=== PATIENT | male | born 1990 | race Hispanic/Latino ===

== ENCOUNTER → 2020-01-19 10:44 | Outpatient (CLI) | payer OTHER, SELFPAY ==
--- NOTE | 2020-01-19 | DI.MRI.S_ITS ---
PROCEDURE: MR KNEE RT WO CON INDICATIONS: Unspecified internal derangement of right knee TECHNIQUE: Noncontrast sagittal PD fast spin echo and T2 fast spin echo with fat saturation, sagittal 3-D FLASH with fat saturation; coronal T1 spin echo and PD fast spin echo with fat saturation, and axial PD fast spin echo with fat saturation through the knee. COMPARISON: None. FINDINGS: Image quality: Excellent. Menisci: Horizontal oblique tear involving body and posterior horn of medial meniscus is seen extending to inferior articulating surface. There is no focal lateral meniscal tear. The meniscal root ligaments appear intact. Cruciate ligaments: The anterior and posterior cruciate ligaments appear intact. Medial structures: There is low-grade MCL sprain.. The posterior oblique ligament, semimembranosus tendon insertions, oblique popliteal ligament, and meniscocapsular junction appear intact. Visualized portions of the pes anserinus tendons appear normal. No abnormal bursal fluid. Lateral structures: The lateral collateral ligament, long and short heads of the biceps femoris tendon appear intact. The popliteus tendon appears normal; the popliteofibular ligament appears intact. The posterosuperior and anteroinferior popliteomeniscal fascicles appear intact. The arcuate and fabellofibular ligaments appear intact, on either side of the lateral inferior geniculate artery. Iliotibial band appears normal. Anterior structures: The quadriceps and patellar tendons appear intact. Patellar alignment is normal. No femoral trochlear dysplasia or ventral trochlear prominence. No edema in the infrapatellar fat pad. Bones and cartilage: Mild medial femoral tibial compartment osteoarthritis and low-grade chondromalacia is seen. Articulating cartilages in patellofemoral compartment and lateral femoral tibial compartment are normal in thickness. Joint space: There is small to moderate amount of joint fluid. No Cullen's cyst. Normal appearing synovial plicae are incidentally noted. IMPRESSION: 1. Horizontal oblique tear involving body and posterior horn of medial meniscus extending to inferior articulating surface. No evidence of focal lateral meniscal tear. 2. Low-grade MCL sprain. 3. Cruciate ligaments are intact. 4. 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 Small to moderate amount of joint fluid. Dictated by: Tank Acuña M.D. on 01/19/2020 at 11:28 Approved by: Tank Acuña M.D. on 01/19/2020 at 11:30
== END ==
PROVIDERS: Referring Provider Orthopaedic Surgery; Visit Provider Orthopaedic Surgery
DX: S83.241A Other tear of medial meniscus, current injury, right knee, initial encounter (principal); S83.411A Sprain of medial collateral ligament of right knee, initial encounter; M17.11 Unilateral primary osteoarthritis, right knee; M94.261 Chondromalacia, right knee
CPT/HCPCS: 73721